=== PATIENT | male | born 1990 ===

== ENCOUNTER 2025-11-19 15:37 | Emergency (ER) | payer BC, SELFPAY ==
[2025-11-19 15:41] VITALS: BP 159/82; PULSE 56; RESP 16; TEMP 36.6; O2SAT 99
--- NOTE | 2025-11-19 16:02 | DI.RAD_ITS ---
Exam(s) XR ANKLE RT COMPLETE EXAM: XR ANKLE RT COMPLETE CLINICAL HISTORY: trauma. TECHNIQUE: 2D digital imaging was performed. Three views. COMPARISON: No exams were available for comparison FINDINGS: BONES: There is an oblique fracture through the distal fibula which is mildly displaced. No angulation. There is a small bony density noted at the medial aspect of the talus which could represent a small avulsion fragment versus related to old trauma. The talar dome appears intact. No bony destructive lesion is seen. JOINTS: There is abnormal widening of the medial ankle mortise. SOFT TISSUE: Soft tissue swelling around both malleoli. IMPRESSION: Distal fibular fracture and widening of the medial ankle mortise. Question of a small avulsion fracture from the medial aspect of the talus. DATA REPOSITORY: RADIATION DOSE DELIVERED:
[2025-11-19] MEDS: Acetaminophen 500 MG TAB 1000 MG PO (16:48)
[2025-11-19] MEDS: oxyCODONE 5 MG TAB PO (16:48)
[2025-11-19] MEDS: Naproxen 250 MG TAB PO (16:48)
--- NOTE | 2025-11-19 16:54 | W.ORTHOCONSU ---
Date of service: 11/19/25 Time of Service: 16:40 History of Present Illness History of Present Illness Chief Complaint: Right Ankle Fracture Narrative: Navdeep was skin today. He is to begin her year and he fell awkwardly putting all of his weight on the left side with some rotation. He was able to hobble with minimal weight on the right leg. He denies any other previous injury to the right leg. Denies numbness or tingling. He does report pain around the right ankle. He lives in [place]. Consults Consult date: 11/19/25 Requesting physician: Alex Angel Consult Reason Right ankle fracture Assessment and Plan Assessment and plan (1) Closed bimalleolar fracture of right ankle: Status: Acute Assessment and plan: Navdeep is a 35-year-old male who suffered an injury while skiing today. This resulted in a bimalleolar ankle fracture. The Norton C fibula fracture unfortunately is an unstable variety and given his young age I would recommend surgical treatment. This does not need be treated today. I recommend placing the leg into a posterior splint, crutches for nonweightbearing ambulation. Due to timing and the holiday I am unable to fix it today. He will be traveling back to [place] on Monday. Once he gets there he should seek out treatment. I recommend keeping the leg elevated is much as possible even for the ride home to [place]. I could treat this on Monday with surgery but will be traveling back to [place]. All his questions were answered. We will send him with a CD of his images. Review of Systems All systems reviewed & are unremarkable except as noted in HPI and below PFSH All Active Problems (Updated 11/19/25 @ 16:59 by Omari Frank MD) Closed bimalleolar fracture of right ankle (Acute) Social History Smoking/Tobacco Use Status: Current-Occasional Tobacco Type: cigarettes Smoking risk assessment performed?: Yes Alcohol Intake: current Alcohol Intake frequency: holidays/special occasions only Drug use: Never Substance use type: does not use Do you feel safe at home: Yes Do you feel safe in your relationship?: Yes Exam Narrative Exam Narrative: Resting in the supine position in the hospital stretcher. No acute distress. Alert orient x 3. Evaluation of the right lower extremity shows notable swelling about the right ankle. This is compressible although quite full. There is no lacerations or abrasions to the skin. There is no gross deformity. There is exquisite pain to palpation over the medial malleolus and the distal fibula. He is able demonstrate some gentle active toe extension and flexion. Sensation intact light touch over the deep and superficial peroneal nerve and tibial nerve. Palpable DP pulse. No appreciable pain proximally by the knee or the proximal tib-fib region. Results Last Vital Signs Temp 36.6 C 11/19/25 15:41 Pulse 56 L 11/19/25 15:41 Resp 16 11/19/25 15:41 BP 159/82 H 11/19/25 15:41 Pulse Ox 99 11/19/25 15:41 Imaging Imaging Studies: X-ray of the right ankle shows a Norton C fibula fracture with some mild displacement. The medial joint space appears widened by about 2 mm and compared to the superior joint space indicative of likely unstable ligamentous injury. There is also nondisplaced fracture seen to the medial malleolus, most evident on the oblique films. Calcification seen adjacent to the medial talus although appears chronic.
--- NOTE | 2025-11-19 17:09 | W.ED.GENAD ---
Discharge Plan Disposition Patient Disposition: Home Discharge Details Clinical Impression: Closed bimalleolar fracture of right ankle Primary Care Provider: Unknown,Unknown ED Provider: Alex Angel Home Meds and New Rx's Prescriptions: New acetaminophen [Tylenol] 325 mg tablet 975 mg PO ONCE PRNQty: 60 0RF ibuprofen 600 mg tablet 600 mg PO Q6H PRNQty: 30 0RF oxycodone 5 mg tablet 5 mg PO Q6H PRNQty: 10 0RF Discharge Instructions Instructions: How to Use Crutches, Going Up and Down Curbs or Stairs With a Walker or Crutches, Lower Leg Fracture ED Additional Instructions: As discussed, since he will be returning back to [place] in the next several days, would recommend contacting orthopedic surgeon in your area for evaluation and surgical fixation of your fracture today. Please do not bear any weight on the injured leg, and use the provided crutches. If you develop severe worsening pain, numbness, loss of color or pulses in your right lower extremity, would return the emergency department for further evaluation as this could be signs of a dangerous condition called compartment syndrome. You have been prescribed anti-inflammatories as well as a prescription for oxycodone, please use them as indicated. You have been provided a disc containing your x-ray imaging for your future surgeon to review. Stand Alone Forms: [facility] Prescribed Opioid Consent, Portal Information Discharge Data Discharge Date/Time-TO BE ENTERED AT DEPARTURE: 11/19/25 17:39 HPI General Date/Time Provider Initiated Documentation: 11/19/25 15:43. HPI Narrative: MDM/Narrative: 35-year-old male status post right ankle injury while skiing. No other reported injuries. Primary survey intact, secondary notable for pain and swelling of the right ankle. X-rays notable for bimalleolar fracture. Case discussed with Dr. Frank of orthopedics who recommends that the patient undergo surgical fixation however patient must return to the [facility] within the next several days and Dr. Ho will not be available to operate. As such we will provide patient with disc of imaging, crutches, placed a posterior slab splint, instructed to follow-up with orthopedic surgeon in the [facility]. Disposition: Discharge HPI: 35-year-old male with the same past medical history, presents for evaluation of an injury to his right ankle which occurred just prior arrival. Patient is states that he attempted to ski for the first time, when he slipped and fell injuring the ankle. Denies any other significant injuries. ROS: Negative besides as mentioned above Exam: Gen: A&O NAD HEENT: NCAT, EOMI, not icteric. External ears normal. No rhinorrhea. Moist mucous membranes. Neck: Supple, full range of motion, no observable masses, No meningeal sign. Lungs: No Respiratory distress. CV: RRR, no edema. Abdomen: Soft, nondistended, No rebound tenderness. MSK: Right lateral malleoli swelling, pain and ecchymosis. DP pulses 2+. Skin: No rashes, petechiae, lesions. Normal color per patient. Neuro: Normal Gait, Grossly intact. Psych: Appropriate for situation. Radiology: XR ANKLE RT COMPLETE EXAM: XR ANKLE RT COMPLETE CLINICAL HISTORY: trauma. TECHNIQUE: 2D digital imaging was performed. Three views. COMPARISON: No exams were available for comparison FINDINGS: BONES: There is an oblique fracture through the distal fibula which is mildly displaced. No angulation. There is a small bony density noted at the medial aspect of the talus which could represent a small avulsion fragment versus related to old trauma. The talar dome appears intact. No bony destructive lesion is seen. JOINTS: There is abnormal widening of the medial ankle mortise. SOFT TISSUE: Soft tissue swelling around both malleoli. IMPRESSION: Distal fibular fracture and widening of the medial ankle mortise. Question of a small avulsion fracture from the medial aspect of the talus. DATA REPOSITORY: RADIATION DOSE DELIVERED: Related Data Home Medications ?Medication ?Instructions ?Recorded ?Confirmed acetaminophen 325 mg tablet 975 mg (3 x 325 mg) PO ONCE PRN 11/19/25 (Tylenol) #60 tabs ibuprofen 600 mg tablet 600 mg PO Q6H PRN #30 tabs 11/19/25 oxycodone 5 mg tablet 5 mg PO Q6H PRN #10 tabs 11/19/25 Previous Rx's ?Medication ?Instructions ?Recorded acetaminophen 325 mg tablet 975 mg (3 x 325 mg) PO ONCE PRN 11/19/25 (Tylenol) #60 tabs ibuprofen 600 mg tablet 600 mg PO Q6H PRN #30 tabs 11/19/25 oxycodone 5 mg tablet 5 mg PO Q6H PRN #10 tabs 11/19/25 Allergies Allergy/AdvReac Type Severity Reaction Status Date / Time No Known Allergies Allergy Verified 11/19/25 15:46 General Stated Complaint: Orthopedic SAHRA: 3 Course Vital Signs Vital signs: Vital Signs Temperature 36.6 C 11/19/25 15:41 Pulse 56 L 11/19/25 15:41 Respiratory Rate 16 11/19/25 15:41 Blood Pressure 159/82 H 11/19/25 15:41 Pulse Oximetry 99 11/19/25 15:41 Temperature 36.6 C 11/19/25 15:41 Temperature Source Oral 11/19/25 15:41 Pulse 56 L 11/19/25 15:41 Respiratory Rate 16 11/19/25 15:41 Blood Pressure 159/82 H 11/19/25 15:41 Blood Pressure Position Sitting 11/19/25 15:41 Pulse Oximetry 99 11/19/25 15:41 Oxygen Delivery Method Room Air 11/19/25 15:41 Oxygen Flow Rate 0 11/19/25 15:41 Pain Level 4 11/19/25 15:52 PFSH All Active Problems (Updated 11/19/25 @ 17:11 by Alex Angel MD) Closed bimalleolar fracture of right ankle (Acute) Social History Smoking/Tobacco Use Status: Current-Occasional Tobacco Type: cigarettes Smoking risk assessment performed?: Yes Alcohol Intake: current Alcohol Intake frequency: holidays/special occasions only Drug use: Never Substance use type: does not use Do you feel safe at home: Yes Do you feel safe in your relationship?: Yes
[2025-11-19 17:11] VITALS: BP 138/65; PULSE 60; RESP 16; O2SAT 98
[2025-11-19] MEDS: MORPHine IR 15 MG TAB, 4 TABS/BTL PO (17:28)
--- NOTE | 2025-11-21 08:19 | ED.FU.B_ITS ---
Date of service: 12/24/25 Time of Service: 08:19 Follow Up Plan: This patient had medications sent to the [facility] pharmacy. [place]. He had a Norton C right ankle fracture and was reportedly traveling home today. I attempted to call the patient. His phone went to voicemail and the voicemail did not identify him by name so I did not leave a message.
--- NOTE | 2025-11-23 01:00 | W.EDPROG ---
Date of service: 11/23/25 Time of Service: 01:01 Medical Decision Making Patient's called stating that the prescription for oxycodone never transmitted through to the [facility] in [place]. I called and spoke to the pharmacist at a [facility] in a nearby town. I placed another order for oxycodone 5 mg p.o. every 6 hours as needed dispense #10 with no refills. Confirmed with pharmacy that they received the prescription and they are cleared to fill it. This should get the patient through the weekend until he can contact primary care or orthopedics in [place] for appropriate follow-up. Discharge Plan Disposition Patient Disposition: Home Discharge Details Clinical Impression: Closed bimalleolar fracture of right ankle Primary Care Provider: Unknown,Unknown ED Provider: Alex Angel Home Meds and New Rx's Prescriptions: New acetaminophen [Tylenol] 325 mg tablet 975 mg PO ONCE PRNQty: 60 0RF ibuprofen 600 mg tablet 600 mg PO Q6H PRNQty: 30 0RF oxycodone 5 mg tablet 5 mg PO Q6H PRNQty: 10 0RF oxycodone 5 mg tablet 5 mg PO Q6H PRNQty: 10 0RF Discharge Instructions Instructions: How to Use Crutches, Going Up and Down Curbs or Stairs With a Walker or Crutches, Lower Leg Fracture ED Additional Instructions: As discussed, since he will be returning back to [place] in the next several days, would recommend contacting orthopedic surgeon in your area for evaluation and surgical fixation of your fracture today. Please do not bear any weight on the injured leg, and use the provided crutches. If you develop severe worsening pain, numbness, loss of color or pulses in your right lower extremity, would return the emergency department for further evaluation as this could be signs of a dangerous condition called compartment syndrome. You have been prescribed anti-inflammatories as well as a prescription for oxycodone, please use them as indicated. You have been provided a disc containing your x-ray imaging for your future surgeon to review. Stand Alone Forms: [facility] Prescribed Opioid Consent, Portal Information Discharge Data Discharge Date/Time-TO BE ENTERED AT DEPARTURE: 11/19/25 17:39
== END 2025-11-19 17:39 | disposition home or self-care (01) ==
LOC: ER 18:33
PROVIDERS: Emergency Provider General Practice
DX: S82.841A Displaced bimalleolar fracture of right lower leg, initial encounter for closed fracture (principal); V00.321A Fall from snow-skis, initial encounter; Y93.23 Activity, snow (alpine) (downhill) skiing, snowboarding, sledding, tobogganing and snow tubing
CPT/HCPCS: 99283 ×2; 123; 00123; 73610